=== PATIENT | female | born 1955 | race Caucasian/White ===

== ENCOUNTER → 2017-04-19 | Outpatient (CLI) | payer MEDICARE | END | disposition home or self-care (01) | LOC: CVU 06:43 | PROVIDERS: ATTEND Psychiatry & Neurology Neurology | DX: I35.8 Other nonrheumatic aortic valve disorders (principal); E78.5 Hyperlipidemia, unspecified; H47.011 Ischemic optic neuropathy, right eye; H35.033 Hypertensive retinopathy, bilateral; I65.23 Occlusion and stenosis of bilateral carotid arteries; Z86.73 Personal history of transient ischemic attack (TIA), and cerebral infarction without residual deficits | CPT/HCPCS: 93306; 93880 ==

== ENCOUNTER → 2017-08-01 | Outpatient (CLI) | payer MEDICARE | END | disposition home or self-care (01) | LOC: CFH 09:57 | PROVIDERS: ATTEND Orthopaedic Surgery | DX: M19.072 Primary osteoarthritis, left ankle and foot (principal) ==

== ENCOUNTER → 2017-08-31 | Outpatient (CLI) | payer MEDICARE | END | disposition home or self-care (01) | LOC: CFH 12:59 | PROVIDERS: ATTEND Orthopaedic Surgery | DX: M65.871 Other synovitis and tenosynovitis, right ankle and foot (principal); R60.0 Localized edema ==

== ENCOUNTER 2018-09-11 11:13 | Emergency (ER) | payer MEDICARE ==
[~2018-09-11] VITALS: Ht 160 cm; Wt 78.0 kg
--- NOTE | 2018-09-11 12:44 | NUR ---
BACK TO ROOM FROM LOBBY
--- NOTE | 2018-09-11 13:16 | NUR ---
Assumed care of patient. C/O "pressure in head" and neck pain. Hx optic neuropathy. Labs drawn. Will continue to monitor.
[2018-09-11 13:25] LABS: HCT (SEDRATE) 39.3 % (34.6-47.8)
[2018-09-11 13:27] LABS: BASOPHILS # (AUTO) 0.03 x10^3/uL (0-0.1); BASOPHILS % (AUTO) 1 % (0-1); EOSINOPHILS # (AUTO) 0.07 x10^3/uL (0-0.4); EOSINOPHILS % (AUTO) 1 % (1-7); LYMPHOCYTES # (AUTO) 2.31 x10^3/uL (1-3.4); LYMPHOCYTES % (AUTO) 32 % (22-44); MD NO; MEAN CORPUSCULAR HEMOGLOBIN 28.1 pg (27.0-34.8); MEAN CORPUSCULAR HGB CONC 33.4 g/dL (32.4-35.8); MEAN CORPUSCULAR VOLUME 84.2 fL (80-100); MEAN PLATELET VOLUME 6.8 fL (7.4-10.4); MONOCYTES # (AUTO) 0.39 x10^3/uL (0.2-0.8); MONOCYTES % (AUTO) 5 % (2-9); NEUTROPHILS # (AUTO) 4.42 x10^3/uL (1.8-6.8); NEUTROPHILS % (AUTO) 61 % (42-75); PLATELET COUNT 373 x10^3/uL (130-400); RED BLOOD COUNT 4.73 x10^6/uL (3.82-5.3)
--- NOTE | 2018-09-11 13:30 | NUR ---
Patient to MRI.
[2018-09-11 13:34] LABS: ALANINE AMINOTRANSFERASE 71 U/L (12-78); ALBUMIN 4.1 g/dL (3.4-5.0); ANION GAP 8 mmol/L (5-15); C-REACTIVE PROTEIN, QUANT 0.78 mg/dL (0.02-0.49); CHLORIDE 110 mmol/L (98-107); CREATININE 0.91 mg/dL (0.55-1.02)
[2018-09-11 13:36] LABS: ALKALINE PHOSPHATASE 119 U/L (45-117); BILIRUBIN,TOTAL 0.5 mg/dL (0.2-1.0); TOTAL PROTEIN 8.2 g/dL (6.4-8.2)
[2018-09-11] MEDS ORDERED: GADOBUTROL 7.5 MMOL/7.5 ML PFS ONE (14:32)
--- NOTE | 2018-09-11 14:32 | NUR ---
Provided with blanket and water.
[2018-09-11 15:38] VITALS: BP 153/96
--- NOTE | 2018-09-11 15:39 | NUR ---
VSS. No other needs.
--- NOTE | 2018-09-11 16:07 | NUR ---
Patient/Caregiver given discharge instructions and they have confirmed that they understand the instructions. Patient ambulatory with steady gait.
== END 2018-09-11 16:08 | disposition home or self-care (01) ==
LOC: ED 14:48
DX: R51 Headache (principal)
CPT/HCPCS: 36415; 70543; 70553; 80053; 85025; 85651; 86140; 99284; A9585